=== PATIENT | female | born 2000 | race Two or more races ===

== ENCOUNTER 2021-12-23 06:43 | Inpatient (IN) | payer BC ==
[2021-12-23] MEDS ORDERED: Sodium Chloride 0.9% 10 ML Syringe FLUSH PRN (08:32)
[2021-12-23] MEDS ORDERED: Ondansetron 4 MG/2 ML SDV IVPUSH PRN (08:32)
[2021-12-23] MEDS ORDERED: Oxytocin/Lactated Ringers 10 UNIT/1,000 ML BAG IV SCH ×2 (08:45→18:00)
[2021-12-23] MEDS: Misoprostol 25 MCG (1/4 of 100 MCG) Tab VAG SCH ×3 (08:58→17:44)
[2021-12-23] MEDS ORDERED: diphenhydrAMINE 50 MG/ML SDV IVPUSH PRN (09:09)
[2021-12-23] MEDS ORDERED: Bupivacaine/fentaNYL/NS 100 ML Bag EPIDUR PRN (09:09)
[2021-12-23] MEDS ORDERED: fentaNYL 100 MCG/2 ML SDV EPIDUR PRN (09:09)
[2021-12-23] MEDS ORDERED: ePHEDrine 50 MG/ML SDV IVPUSH PRN (09:09)
[2021-12-23] MEDS: Lactated Ringers 1,000 ML IV SCH ×3 (16:27→23:23)
[2021-12-23] MEDS: Sodium Chloride 0.9% 10 ML Syringe FLUSH SCH (17:44)
[2021-12-24] MEDS: Lactated Ringers 1,000 ML IV SCH (00:51)
[2021-12-24] MEDS ORDERED: Dextrose 5% in Water 1,000 ML IV SCH (01:30)
[2021-12-24] MEDS: Sodium Chloride 0.9% 10 ML Syringe FLUSH SCH (01:36)
[2021-12-24] MEDS ORDERED: Witch Hazel Medicated Pads 40/Jar TOP PRN (09:58)
[2021-12-24] MEDS ORDERED: Benzocaine/Menthol 20%-0.5% Spray 78 GM Cannister TOP PRN (09:58)
[2021-12-24] MEDS ORDERED: Bupivacaine 0.25% 10 ML SDV ONE (14:00)
[2021-12-24] MEDS: Ibuprofen 600 MG Tab PO PRN (18:11)
[2021-12-25] MEDS: Ibuprofen 600 MG Tab PO PRN ×2 (08:27→16:57)
[2021-12-25] MEDS: Sodium Chloride 0.9% 10 ML Syringe FLUSH SCH (23:47)
[2021-12-26] MEDS: Ibuprofen 600 MG Tab PO PRN (12:12)
== END 2021-12-26 16:00 | disposition home or self-care (01) | DRG 560 ==
LOC: JD.OB 06:43 → OBSVTOIN 12-24 07:05 → JD.OB 12-24 07:06
PROVIDERS: ADMIT Obstetrics & Gynecology; ATTEND Obstetrics & Gynecology
PROC: 10E0XZZ Delivery of Products of Conception, External Approach (ICD-10-PCS; principal; 2021-12-24)
PROC: 10907ZC Drainage of Amniotic Fluid, Therapeutic from Products of Conception, Via Natural or Artificial Opening (ICD-10-PCS; 2021-12-24)
PROC: 0KQM0ZZ Repair Perineum Muscle, Open Approach (ICD-10-PCS; 2021-12-24)
DX: O77.0 Labor and delivery complicated by meconium in amniotic fluid (principal); Z3A.39 39 weeks gestation of pregnancy; Z37.0 Single live birth; O66.0 Obstructed labor due to shoulder dystocia; O70.1 Second degree perineal laceration during delivery; O24.424 Gestational diabetes mellitus in childbirth, insulin controlled
CPT/HCPCS: 36415; 51702; 59025; 59409; 80053; 82570; 82947; 83615; 84156; 85027; A9270-GY; C1726; J1815-GY; J2590; J3010; J3490; J7060; J7120

== ENCOUNTER 2025-05-10 14:14 | Inpatient (IN) | payer MEDICAID ==
[2025-05-10] MEDS ORDERED: Ondansetron 4 MG/2 ML SDV IVPUSH PRN (15:03)
[2025-05-10] MEDS ORDERED: Nalbuphine 10 MG/1 ML Vial IVPUSH PRN (15:03)
[2025-05-10] MEDS ORDERED: Lidocaine 1% 50 ML MDV INJECT PRN (15:03)
[2025-05-10] MEDS ORDERED: Oxytocin/0.9 % Sodium Chloride 30 UNIT/500 ML BAG IV SCH (15:15)
[2025-05-10 15:29] LABS: BASOPHILS PERCENT AUTO 0.2 % (0.0-1.0); EOSINOPHILS PERCENT AUTO 0.2 % (0.0-6.0); HEMATOCRIT 42.3 % (37.0-47.0); HEMOGLOBIN 14.6 gm/dl (12.0-16.0); IMMATURE GRAN ABSOLUTE AUTO 0.07 K/mm3 (0.00-0.05); IMMATURE GRAN PERCENT AUTO 0.7 % (0.0-0.4); LYMPHOCYTES ABSOLUTE AUTO 1.9 K/mm3 (1.0-4.8); LYMPHOCYTES PERCENT AUTO 18.3 % (24.0-44.0); MEAN CORPUSCULAR HGB CONC 34.5 g/dl (32.0-36.0); MEAN CORPUSCULAR VOLUME 98.4 fl (83.0-99.0); MONOCYTES ABSOLUTE AUTO 0.7 K/mm3 (0.0-0.8); MONOCYTES PERCENT AUTO 6.6 % (0.0-8.0); NEUTROPHILS ABSOLUTE AUTO 7.7 K/mm3 (1.8-7.7); PLATELET COUNT,PLT 206 K/mm3 (150-400); WHITE BLOOD CELL COUNT,WBC 10.42 K/mm3 (3.9-11.3)
[2025-05-10] MEDS: Oxytocin/0.9 % Sodium Chloride 30 UNIT/500 ML BAG IV SCH (16:47)
[2025-05-10] MEDS: Lactated Ringers 1,000 ML IV SCH (16:47)
[2025-05-10] MEDS ORDERED: diphenhydrAMINE 50 MG/ML SDV IVPUSH PRN (21:30)
[2025-05-10] MEDS ORDERED: ePHEDrine 50 MG/ML SDV IVPUSH PRN (21:30)
[2025-05-10] MEDS: Bupivacaine/fentaNYL/NS 100 ML Bag EPIDUR PRN (21:39)
[2025-05-10] MEDS: fentaNYL 100 MCG/2 ML SDV EPIDUR PRN (21:39)
[2025-05-11] MEDS: Witch Hazel Medicated Pads 40/Jar TOP PRN (01:58)
[2025-05-11] MEDS: Benzocaine/Menthol 20%-0.5% Spray 78 GM Cannister TOP PRN (01:59)
[2025-05-11] MEDS: Ibuprofen 600 MG Tab PO SCH (02:08)
[2025-05-11] MEDS ORDERED: Bupivacaine 0.25% 10 ML SDV ONE (07:00)
[2025-05-11] MEDS ORDERED: Sodium Chloride 0.9% 10 ML SDV ONE (07:00)
[2025-05-12] MEDS: Acetaminophen 325 MG Tab PO PRN (04:45)
== END 2025-05-12 10:56 | disposition home or self-care (01) | DRG 807 ==
LOC: JD.OB 14:14 → JD.OBCHECK 14:14 → JD.OB 15:03 → JD.OBCHECK 15:08 → OBSVTOIN 05-11 00:42 → JD.OB 05-11 00:43
PROVIDERS: ADMIT Obstetrics & Gynecology; ATTEND Obstetrics & Gynecology
PROC: 10E0XZZ Delivery of Products of Conception, External Approach (ICD-10-PCS; principal; 2025-05-11)
PROC: 4A1HXCZ Monitoring of Products of Conception, Cardiac Rate, External Approach (ICD-10-PCS; 2025-05-11)
PROC: 3E0R3BZ Introduction of Anesthetic Agent into Spinal Canal, Percutaneous Approach (ICD-10-PCS; 2025-05-11)
PROC: 00HU33Z Insertion of Infusion Device into Spinal Canal, Percutaneous Approach (ICD-10-PCS; 2025-05-11)
DX: O42.02 Full-term premature rupture of membranes, onset of labor within 24 hours of rupture (principal); Z37.0 Single live birth; Z3A.40 40 weeks gestation of pregnancy
CPT/HCPCS: 01967; 36415; 51702; 59025; 59409; 84112; 85025; 86592; 86850; 86900; 86901; A9270-GY; J0665; J3010; J3490; J7120; J7999